=== PATIENT | male | born 1990 | race Caucasian/White ===

== ENCOUNTER 2020-06-08 11:29 | Outpatient (REF) | payer OTHER, SELFPAY ==
[2020-06-08 14:20] LABS: SARS COV2 PCR INHOUSE NEGATIVE (Negative)
== END 2020-06-08 11:30 | disposition home or self-care (01) ==
LOC: HO.LAB 11:29
PROVIDERS: Visit Provider Internal Medicine
DX: Z20.822 Contact with and (suspected) exposure to COVID-19 (principal)
CPT/HCPCS: C9803; U0003

== ENCOUNTER 2020-06-13 11:44 | Outpatient (REF) | payer OTHER, SELFPAY ==
[2020-06-13 11:55] LABS: COVID-19 Test Positive (Negative)
== END 2020-06-13 11:45 | disposition home or self-care (01) ==
LOC: HO.LAB 11:44
PROVIDERS: Visit Provider Internal Medicine
DX: Z20.822 Contact with and (suspected) exposure to COVID-19 (principal)
CPT/HCPCS: 36415; 87635; C9803

== ENCOUNTER → 2020-10-25 09:12 | Outpatient (BNVA) | payer SELFPAY | PROVIDERS: Visit Provider Physician Assistant Medical | DX: Z02.79 Encounter for issue of other medical certificate (principal) ==

== ENCOUNTER 2022-01-28 13:21 | Outpatient (REF) | payer BC, SELFPAY ==
[2022-01-28 13:34] LABS: MANUAL DIFF FLAG NO
[2022-01-28 13:53] LABS: Basophils Percent Auto 0.5 % (0-2); Eosinophils Percent Auto 0.9 % (0-4); Hematocrit 44.7 % (42.0-52.0); Imm Gran Abs Auto 0.01 X10*3/uL (0.00-0.03); Imm Gran Pct Auto 0.2 % (0.0-0.4); Lymphocytes Absolute Auto 1.1 X10*3/uL (1.2-4.9); Lymphocytes Percent Auto 24.9 % (20-40); Mean Corpuscular HGB Conc 33.6 g/dl (31.0-36.0); Mean Corpuscular Hemoglobin 29.2 pg (27.0-33.0); Mean Corpuscular Volume 87.1 fL (80.0-98.0); Monocytes Absolute Auto 0.8 X10*3/uL (0.1-1.2); Monocytes Percent Auto 18.9 % (2-11); Neutrophils Absolute Auto 2.3 x10*3/uL (2.0-8.3); Neutrophils Percent Auto 54.6 % (45-73); Platelet Count 190 X10*3/uL (160-400); Red Blood Count 5.13 X10*6/uL (4.60-5.80); White Blood Count 4.3 X10*3/uL (4.8-10.8)
[2022-01-28 14:19] LABS: Alanine Aminotransferase 15 U/L (0-40); Albumin Level 4.6 g/dL (3.5-5.0); Alkaline Phosphatase 100 U/L (39-117); Anion Gap 12 (12-20); Aspartate Amino Transferase 27 U/L (5-37); Bilirubin Total 0.6 mg/dL (0.0-1.0); Blood Urea Nitrogen 12 mg/dL (9-16); Calcium 9.6 mg/dL (8.4-10.2); Carbon Dioxide 29 mmol/L (22-29); Chloride 102 mmol/L (96-108); Cholesterol 129 mg/dL; Estimated Glomerular Filt Rate > 60; Glucose Random 87 mg/dL (60-115); HDL Cholesterol 41 mg/dL; LDL Cholesterol Calculated 78 mg/dl; Potassium 4.4 mmol/L (3.3-5.1); Sodium 139 mmol/L (135-145); Total Protein 7.6 g/dL (6.5-8.0); Triglycerides 54 mg/dL
== END 2022-01-28 13:22 | disposition home or self-care (01) ==
LOC: HO.LAB 13:21
PROVIDERS: PCP Internal Medicine; Visit Provider Internal Medicine
DX: Z00.00 Encounter for general adult medical examination without abnormal findings (principal); Z13.31 Encounter for screening for depression
CPT/HCPCS: 36415; 80053; 80061; 85025